=== PATIENT | female | born 1970 | race Caucasian/White ===

== ENCOUNTER 2024-01-18 13:24 | Outpatient (REF) | payer OTHER, SELFPAY ==
[2024-01-18 17:20] VITALS: BP 145/66; PULSE 60; RESP 20; TEMP 36.2; O2SAT 99; BMI 23.0
== END 2024-01-18 13:25 | disposition home or self-care (01) ==
LOC: HO.MS 13:24
PROVIDERS: PCP Internal Medicine; Visit Provider Ophthalmology
PROC: (CPT 66761; principal; 2024-01-18 15:40)
DX: H40.031 Anatomical narrow angle, right eye (principal)
CPT/HCPCS: 66500

== ENCOUNTER 2024-01-25 13:59 | Outpatient (REF) | payer BC, SELFPAY ==
[2024-01-25 14:24] VITALS: BP 118/72; PULSE 78; RESP 18; TEMP 36.2; O2SAT 97; BMI 19.8
== END 2024-01-25 14:00 | disposition home or self-care (01) ==
LOC: HO.MS 13:59
PROVIDERS: PCP Internal Medicine; Visit Provider Ophthalmology
PROC: (CPT 66761; principal; 2024-01-25 15:00)
DX: H40.032 Anatomical narrow angle, left eye (principal)
CPT/HCPCS: 66761